=== PATIENT | male | born 1945 | race Caucasian/White ===

== ENCOUNTER 2018-01-23 12:14 | Day surgery (SDC) | payer MEDICARE, OTHER ==
[~2018-01-23] VITALS: Ht 170.2 cm; Wt 98.2 kg
[~2018-01-23 12:14] MED LIST: LISI5 PO
[2018-01-23] MEDS ORDERED: METF500 (12:40)
[2018-01-23] MEDS ORDERED: ATOR10 (12:41)
== END 2018-01-23 14:48 | disposition home or self-care (01) ==
LOC: ORSCSDS 12:14
PROVIDERS: Internal Medicine Gastroenterology
PROC: 0DBN8ZX Excision of Sigmoid Colon, Via Natural or Artificial Opening Endoscopic, Diagnostic (ICD-10-PCS; principal; 2018-01-23 14:15)
DX: Z12.11 Encounter for screening for malignant neoplasm of colon (principal); D12.5 Benign neoplasm of sigmoid colon; K64.8 Other hemorrhoids; K57.30 Diverticulosis of large intestine without perforation or abscess without bleeding; Z86.010 Personal history of colon polyps; I10 Essential (primary) hypertension; E78.5 Hyperlipidemia, unspecified; Z79.899 Other long term (current) drug therapy
CPT/HCPCS: 82947; 88305

== ENCOUNTER → 2020-06-24 | Outpatient (CLI) | payer MEDICARE, OTHER ==
[~2020-06-24] MED LIST changes: +ATOR10; +METF500
== END | disposition home or self-care (01) ==
LOC: LAB SHORT 11:03 → PLD 11:03
DX: C44.310 Basal cell carcinoma of skin of unspecified parts of face (principal)
CPT/HCPCS: 88305

== ENCOUNTER 2021-01-01 06:12 | Day surgery (SDC) | payer MEDICARE, OTHER ==
[~2021-01-01] VITALS: Ht 170.2 cm; Wt 97.8 kg
[~2021-01-01 06:12] MED LIST changes: +ATOR40TA PO; +GLUCOPHAGE1000 M2 PO; +LOSARTAN POTAS100 MG PO; +Norco 5-325 Ta1 EACH PO; +OFEV150 MG PO; +OMEP20ER PO; +Robaxin750 MG PO; +TIZA4 PO
--- NOTE | 2021-01-01 07:53 | NUR ---
01/01/21 0753 Telma pU EPI 0.15MG MIXED INTO BUPIVACAINE 0.5% 30ML TO CONSTITUTE BUPIVACAINE 0.5% W/EPI 1:200,000. MIXED IN OR BY RN FOR INJECTION BY SURGEON DURING PROCEDURE
--- NOTE | 2021-01-01 09:07 | NUR ---
01/01/21 0907 Eva Salinas UPON D/C SCANT BLOOD AT TIP ON FOOT, SIZE OF DIME. NO ACTIVE BLEEDING.
== END 2021-01-01 09:12 | disposition home or self-care (01) ==
LOC: ORSCSDS 06:12
PROVIDERS: Podiatrist Foot & Ankle Surgery
PROC: 0L8W0ZZ Division of Left Foot Tendon, Open Approach (ICD-10-PCS; principal; 2021-01-01 07:30)
DX: M20.42 Other hammer toe(s) (acquired), left foot (principal); I10 Essential (primary) hypertension; E11.9 Type 2 diabetes mellitus without complications; E78.5 Hyperlipidemia, unspecified; K21.9 Gastro-esophageal reflux disease without esophagitis; J84.10 Pulmonary fibrosis, unspecified; Z79.84 Long term (current) use of oral hypoglycemic drugs; Z79.899 Other long term (current) drug therapy
CPT/HCPCS: 82947; C1713; J0171; J0690; J1100; J2370; J2405; J2704; J3010

== ENCOUNTER 2021-07-06 09:30 | Day surgery (SDC) | payer MEDICARE ==
--- NOTE | 2021-07-06 10:02 | NUR ---
Ambulatory in Day SurgeryPatient states colon prep results clear. History, Chart, Medications and Allergies reviewed before start of procedure.Lungs clear T/O to Auscultation. Patient confirms NPO status and agrees with scheduled surgery.
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
--- NOTE | 2021-07-06 12:11 | NUR ---
Patient up to Ambulate independently. Gait steady. Discharge instructions reviewed with patient. Patient verbalizes understanding. Copy given to patient to take home. Patient States Post-Procedure ride home has been arranged. Discharged via wheelchair to private car for ride home.
== END 2021-07-06 12:11 | disposition home or self-care (01) ==
LOC: ORSCMMR 09:30 → ORSCSDS 10:45 → ORSCMMR 12:11
PROVIDERS: Internal Medicine Gastroenterology
PROC: 0DBL8ZX Excision of Transverse Colon, Via Natural or Artificial Opening Endoscopic, Diagnostic (ICD-10-PCS; principal; 2021-07-06 10:45)
PROC: 0DBM8ZX Excision of Descending Colon, Via Natural or Artificial Opening Endoscopic, Diagnostic (ICD-10-PCS; principal; 2021-07-06 10:45)
DX: Z12.11 Encounter for screening for malignant neoplasm of colon (principal); D12.3 Benign neoplasm of transverse colon; K57.30 Diverticulosis of large intestine without perforation or abscess without bleeding; K64.8 Other hemorrhoids; Z86.010 Personal history of colon polyps; E11.9 Type 2 diabetes mellitus without complications; Z79.84 Long term (current) use of oral hypoglycemic drugs; Z79.899 Other long term (current) drug therapy
CPT/HCPCS: 82947; 88305; J2704; J7120